=== PATIENT | male | born 1945 | race Caucasian/White ===

== ENCOUNTER 2019-02-21 21:09 | Inpatient (IN) | payer MEDICARE ==
[~2019-02-21] VITALS: Ht 185.4 cm; Wt 97.0 kg
[2019-02-21 21:47] LABS: Hematocrit 21.5 % (41.0-53.0); Hemoglobin 7.1 g/dL (13.5-17.5); Mean Corpuscular Hemoglobin 32.1 pg (28.0-32.0); Mean Corpuscular Volume 97.1 fL (80.0-100.0); Red Blood Cells 2.21 10^6/uL (4.5-5.90); Red Cell Distribution Width 17.8 % (11.8-14.3)
[2019-02-21 21:54] LABS: Platelet Count (auto) 8 10^3/uL (140-450); White Blood Cell 35.3 10^3/uL (4.4-10.8)
[2019-02-21 21:56] LABS: Basophils % (manual) 0 (0.0-2.0); Blast Cells 0; Eosinophils % (manual) 0 (0-7); Myelocytes % 0; Promyelocytes % 0
[2019-02-21 22:04] LABS: INR 1.01 (0.9-1.15); Partial Thromboplastin Time 38.9 sec (23.64-32.05)
[2019-02-21 22:07] LABS: Albumin 2.6 g/dL (3.4-5.0); Anion Gap 11 (5-15); Calcium 7.5 mg/dL (8.5-10.1); Carbon Dioxide 17 mmol/L (21-32); Chloride 106 mmol/L (98-107); GFR African American 28 mL/min; GFR Non-African American 23 mL/min; Glucose 182 mg/dL (74-106); Magnesium 3.3 mg/dL (1.6-2.6); Potassium 4.1 mmol/L (3.5-5.1); Sodium 134 mmol/L (136-145)
[2019-02-21 22:09] LABS: Alanine Aminotransferase 35 U/L (16-61); Alkaline Phosphatase 130 U/L (45-117); Aspartate Aminotransferase 44 U/L (15-37); Bilirubin, Total 1.5 mg/dL (0.2-1.0); Total Protein 5.9 g/dL (6.4-8.2)
[2019-02-21 22:21] LABS: Blood Urea Nitrogen 107 mg/dL (7-18)
[2019-02-21 22:44] LABS: Band Neutrophils % (manual) 7
[2019-02-21 22:45] LABS: Lymphocytes % (manual) 64 (10.0-50.0); Metamyelocytes % 4; Monocytes % (manual) 10 (0-12); Reactive Lymphocytes 5
[2019-02-22] VITALS (9 sets, daily range): BP systolic 101–140; BP diastolic 49–77
[2019-02-22 00:38] LABS: Urine Amorphous Crystal FEW /hpf (None Seen); Urine Bacteria FEW /hpf (None Seen); Urine Blood 1+ /uL (Negative); Urine Hyaline Cast FEW /lpf (0 - 2); Urine Specific Gravity 1.014 (1.001-1.035); Urine WBC 1 /hpf (0 - 3)
[2019-02-22] MEDS ORDERED: TEMAZEPAM 15 MG CAP PO PRN (05:00)
[2019-02-22] MEDS ORDERED: methylPREDNISolone SOD SUCC 125 MG/2 ML VL IV ONE (05:00)
[2019-02-22] MEDS ORDERED: SODIUM CHLORIDE 0.9% 1,000 ML IV ONE (05:15)
[2019-02-22 06:08] LABS: Hematocrit 18.7 % (41.0-53.0); Mean Corpuscular Hemoglobin 33.3 pg (28.0-32.0); Mean Corpuscular Hgb Conc. 34.9 g/dL (32.0-36.0); Mean Corpuscular Volume 95.6 fL (80.0-100.0); Platelet Count (auto) 29 10^3/uL (140-450); Red Blood Cells 1.95 10^6/uL (4.5-5.90); Red Cell Distribution Width 17.8 % (11.8-14.3); White Blood Cell 27.1 10^3/uL (4.4-10.8)
[2019-02-22 06:21] LABS: BUN/Creatinine Ratio 44.7
[2019-02-22] MEDS: DOXYCYCLINE 100MG/250ML 250 ML IV SCH ×2 (06:25→17:35)
[2019-02-22] MEDS: MORPHINE SULF INJ 2 MG/ML SYRINGE 1ML IV PRN ×2 (06:25→20:20)
[2019-02-22] MEDS: ONDANSETRON HCL 4 MG/2 ML VIAL IV PRN ×2 (06:26→20:25)
[2019-02-22 06:37] LABS: Hemoglobin 6.5 g/dL (13.5-17.5)
[2019-02-22 06:39] LABS: Basophils % (manual) 0 (0.0-2.0); Blast Cells 0; Eosinophils % (manual) 0 (0-7); Myelocytes % 0; Promyelocytes % 0; Reactive Lymphocytes 0
[2019-02-22 07:59] LABS: % Iron Saturation 97.9 % (20-55)
[2019-02-22 08:09] LABS: Band Neutrophils % (manual) 6; Lymphocytes % (manual) 79 (10.0-50.0); Metamyelocytes % 2; Monocytes % (manual) 5 (0-12)
[2019-02-22 08:58] LABS: Folate (Folic Acid) 8.51 ng/mL (5.38-24)
--- NOTE | 2019-02-22 09:00 | NUR ---
Telemetry admit from ER DRISSAISHASAMANTHA admitted to Telemetry unit after SBAR received. Patient oriented to BLAIR CARRILLO, RN primary RN, unit, room, bed, and unit policies regarding patient care and visiting hours. Patient now on continuous telemetry monitoring, tele box #80 and telemetry reading on arrival to unit is normal sinus rhythm at 91 bpm. Patient placed on bedside oxygen, weighed by bed scale and encouraged to call if they need something. All questions and concerns addressed, patient verbalized understanding.
[2019-02-22] MEDS: PANTOPRAZOLE 40 MG TAB PO SCH (10:00)
--- NOTE | 2019-02-22 10:45 | NUR ---
Dr. Edwards, Glass Rolling Machine Operator, at bedside. New orders received.
--- NOTE | 2019-02-22 11:00 | NUR ---
Joe catheter insertion Patient assessed and determined to be in need of joe catheter. Order obtained from MD. Patient educated on catheter and reason for insertion. All questions answered. Joe catheter 16 gauge Sinhala inserted with clean sterile technique. Patient tolerated well.
--- NOTE | 2019-02-22 11:00 | NUR ---
Dr. Edwards, Post Anesthesia Nurse, ordered strict I&O's.
--- NOTE | 2019-02-22 11:05 | NUR ---
Blood transfusion started at 1105. Vitals are as followed: 140/66 mmHg 93 Heart Rate 15 Respiratory Rate 100% O2 sat on room air 98.2 oral temp F. No distress noted at time of start, patient lying supine in bed.
--- NOTE | 2019-02-22 12:00 | NUR ---
Drained 2000 mL of urine from joe bag.
--- NOTE | 2019-02-22 14:41 | NUR ---
Blood transfusion finished; patient tolerated well.
[2019-02-22] MEDS: PIPERACILLIN-TAZO 4.5GM 100 ML IV SCH (23:00)
[2019-02-22] MEDS ORDERED: PIPERACILLIN-TAZO 4.5GM 100 ML IV ONE (23:33)
[2019-02-23] VITALS (11 sets, daily range): BP systolic 111–130; BP diastolic 52–79
[2019-02-23] MEDS: ONDANSETRON HCL 4 MG/2 ML VIAL IV PRN (03:33)
[2019-02-23] MEDS: MORPHINE SULF INJ 2 MG/ML SYRINGE 1ML IV PRN ×4 (03:38→22:04)
--- NOTE | 2019-02-23 04:11 | NUR ---
Pt medicated for pain with morphine 2mg IVP after zofran 4gm given to prevent n/v. Pt complaintive whenever linens moved or he is touched. Does not make requests or complaints clear freq. Dozes off easily. RN found towel between pt's legs wrapped with chux. Towel removed. F/C balloon checked as DEPUTY [place] MAR[employer] states F/C has been dripping. 12ml in catheter balloon. Pt dozing at this time.
[2019-02-23] MEDS: DOXYCYCLINE 100MG/250ML 250 ML IV SCH ×2 (04:27→17:33)
[2019-02-23] MEDS: PIPERACILLIN-TAZO 4.5GM 100 ML IV SCH ×3 (06:00→22:04)
[2019-02-23 06:41] LABS: Hematocrit 19.9 % (41.0-53.0); Mean Corpuscular Hemoglobin 33.2 pg (28.0-32.0); Mean Corpuscular Hgb Conc. 35.3 g/dL (32.0-36.0); Mean Corpuscular Volume 94.2 fL (80.0-100.0); Red Blood Cells 2.11 10^6/uL (4.5-5.90); Red Cell Distribution Width 17.3 % (11.8-14.3); White Blood Cell 6.3 10^3/uL (4.4-10.8)
[2019-02-23 06:52] LABS: Albumin 2.4 g/dL (3.4-5.0); Potassium 4.7 mmol/L (3.5-5.1)
[2019-02-23 06:56] LABS: Bilirubin, Total 1.5 mg/dL (0.2-1.0); Total Protein 5.8 g/dL (6.4-8.2)
[2019-02-23 07:00] LABS: Platelet Count (auto) 6 10^3/uL (140-450)
[2019-02-23 07:05] LABS: Basophils % (manual) 0 (0.0-2.0); Blast Cells 0; Eosinophils % (manual) 0 (0-7); Monocytes % (manual) 0 (0-12); Myelocytes % 0; Promyelocytes % 0; Reactive Lymphocytes 0
--- NOTE | 2019-02-23 08:00 | NUR ---
OPENING SHIFT NOTE: PATIENT SITTING UP IN BED EATING BREAKFAST. UPDATED ON PLAN OF CARE. PATIENT VERBALIZED UNDERSTANDING. BED IN LOWEST LOCKED POSITION, CALL LIGHT WITHIN REACH. WILL CONTINUE TO MONITOR.
[2019-02-23 08:36] LABS: Band Neutrophils % (manual) 20; Lymphocytes % (manual) 56 (10.0-50.0); Metamyelocytes % 3
[2019-02-23 09:34] LABS: Hepatitis A Ab IgM Negative; Hepatitis B Core IgM Negative; Hepatitis B Surface Antigen Negative (Negative); Hepatitis C Antibody Negative (Negative)
--- NOTE | 2019-02-23 11:02 | NUR ---
MD RAI ARANA. NEW ORDERS GIVEN.
[2019-02-23] MEDS: PANTOPRAZOLE 40 MG TAB PO SCH (11:16)
--- NOTE | 2019-02-23 11:36 | NUR ---
CALL FROM BLOOD BANK: PLATELETS TO COME FROM OUTSIDE VENDOR. APPROXIMATELY 2-4 HOUR ARRIVAL TIME.
[2019-02-23] MEDS: ACETAMINOPHEN 500 MG TAB PO PRN (13:35)
--- NOTE | 2019-02-23 13:39 | NUR ---
IV NEW IV IN LEFT HAND 20G SALINE LOCKED.
--- NOTE | 2019-02-23 14:57 | NUR ---
Discharge planning per consult, patient has orders for home health for safety eval, PT, and medication management and a FWW. Referral faxed to [facility] for the FWW. Placed a follow up call, spoke with Amber and was advised that patient has medicare part A only and does not qualify for the FWW. Patient was presented with a choice letter,and did not have a preference. Referral was faxed to [facility], placed a follow up call, spoke with Teetee and was advised that they will accept patient onto services and start of care will begin within 24-48 hours upon discharge. Nurse Becerril was advised. Addendum: 02/23/19 at 1516 by PHIL MUÑIZ Amended: Links added.
[2019-02-23] MEDS: SODIUM CHLORIDE 0.9% 1,000 ML IV SCH (16:51)
--- NOTE | 2019-02-23 17:40 | NUR ---
DR. Alejandra SMITH AT BEDSIDE.
[2019-02-23] MEDS ORDERED: DexAMETHasone INJECTION 10 MG in D5W 5% 50 ML IV SCH (18:00)
[2019-02-23] MEDS: DexAMETHasone INJECTION 10 MG in D5W 5% 50 ML IV SCH ×2 (18:31→21:06)
--- NOTE | 2019-02-23 18:41 | NUR ---
CLOSING SHIFT NOTE: PATIENT RESTING IN BED. BREATHING EVEN, UNLABORED. COMPLAINTS OF ABDOMINAL PAIN, INFORMED PATIENT OF TIME FRAME FOR NEXT MORPHINE DOSE. PATIENT VERBALIZED UNDERSTANDING. CALL LIGHT WITHIN REACH. WILL ENDORSE CARE TO NOC RN.
--- NOTE | 2019-02-23 19:14 | NUR ---
CARE ENDORSED TO MARY SILVERIO RN.
--- NOTE | 2019-02-23 19:30 | NUR ---
Opening Shift Note Assumed care of patient, awake and alert. No S/S of distress/SOB or pain. Bed locked in lowest position, side rails upx2, call light within reach, bed alarm on. Instructed on POC and to call for assist PRN, will continue to monitor for changes Q1hr and PRN.
[2019-02-23] MEDS: SODIUM BICARBONATE 650 MG TAB PO SCH (21:06)
[2019-02-24] VITALS (11 sets, daily range): BP systolic 105–132; BP diastolic 64–82
[2019-02-24] MEDS: MORPHINE SULF INJ 2 MG/ML SYRINGE 1ML IV PRN ×2 (04:24→16:27)
[2019-02-24] MEDS: DOXYCYCLINE 100MG/250ML 250 ML IV SCH ×2 (04:57→17:42)
[2019-02-24] MEDS: DexAMETHasone INJECTION 10 MG in D5W 5% 50 ML IV SCH ×4 (06:11→21:40)
[2019-02-24] MEDS: SODIUM BICARBONATE 650 MG TAB PO SCH ×3 (06:11→21:41)
[2019-02-24] MEDS: PIPERACILLIN-TAZO 4.5GM 100 ML IV SCH ×3 (07:01→22:25)
[2019-02-24 07:13] LABS: Hematocrit 21.5 % (41.0-53.0); Hemoglobin 7.5 g/dL (13.5-17.5); Red Cell Distribution Width 16.8 % (11.8-14.3)
[2019-02-24 07:15] LABS: Mean Corpuscular Hgb Conc. 34.9 g/dL (32.0-36.0); Mean Corpuscular Volume 94.8 fL (80.0-100.0); Red Blood Cells 2.27 10^6/uL (4.5-5.90); White Blood Cell 3.3 10^3/uL (4.4-10.8)
[2019-02-24 07:29] LABS: BUN/Creatinine Ratio 36.3; Calcium 7.8 mg/dL (8.5-10.1); Potassium 5.1 mmol/L (3.5-5.1)
[2019-02-24 07:49] LABS: Basophils % (manual) 0 (0.0-2.0); Blast Cells 0; Eosinophils % (manual) 0 (0-7); Metamyelocytes % 0; Myelocytes % 0; Platelet Count (auto) 11 10^3/uL (140-450); Promyelocytes % 0; Reactive Lymphocytes 0
--- NOTE | 2019-02-24 08:06 | NUR ---
CRITICAL LAB PAGE TO DR. ATWOOD -PLATELETS 11
--- NOTE | 2019-02-24 08:07 | NUR ---
OPENING SHIFT NOTE: PATIENT AWAKE, RESTING IN BED EATING BREAKFAST. NO COMPLAINTS OF PAIN, BED IN LOWEST LOCKED POSITION, BED ALARM ON AND IN PLACE. CALL LIGHT WITHIN REACH, RESPIRATIONS EVEN AND UNLABORED. WILL CONTINUE TO MONITOR.
[2019-02-24 08:22] LABS: Band Neutrophils % (manual) 4; Lymphocytes % (manual) 69 (10.0-50.0); Monocytes % (manual) 6 (0-12)
[2019-02-24] MEDS: SODIUM CHLORIDE 0.9% 1,000 ML IV SCH (09:46)
[2019-02-24] MEDS: PANTOPRAZOLE 40 MG TAB PO SCH (09:46)
--- NOTE | 2019-02-24 13:12 | NUR ---
MD Donavan MATHEWS MADE AWARE OF PATIENTS SUICIDE IDEATION. ORDERS GIVEN. TELE PSYCH CONSULT PLACED.
--- NOTE | 2019-02-24 13:18 | NUR ---
PATIENT'S THOUGHTS/EMOTIONAL CONCERN: DURING PATIENT ROUNDING, THIS RN ACTIVELY LISTENED TO PATIENTS OPINIONS AND THOUGHTS ABOUT LIFE. PATIENT STATED, "MY DAUGHTER RUINED MY PLAN BY CALLING 911." "I TOLD HER JUST LEAVE ME ALONE, LET THE SOLAR DESIGNER FIND ME." PATIENT DENIES ANY HISTORY OF DEPRESSION, BUT CONFIRMED HAVING A SUICIDE PLAN IN THE PAST. THIS RN TO INFORM PRIMARY MD.
[2019-02-24 13:46] LABS: Hepatitis B Surface Antibody Negative
--- NOTE | 2019-02-24 13:55 | NUR ---
MESSAGE TO DR. GEE: THIS RN LEFT MESSAGE FOR MD. GEE REGARDING NEED FOR CLARIFICATION OF COMMUNICATION ORDER FOR 2 UNITS PRBC'S. CONFLICTING NOTES FROM Alejandra SMITH.
[2019-02-24 14:37] LABS: Hepatitis B Surface Antigen Negative (Negative)
--- NOTE | 2019-02-24 14:54 | NUR ---
assessment Patient is a 73 year old male who is alert and oriented. Patients cognitive abilities are intact. Prior to admission patient lived home alone and needed assistance. Patient informed me he could take care of himself, but clearly he needs assistance. Per patient he has a cane for home use. Patient will need a PT evaluation. I informed patient he may benefit from home health PT or SNF depending on eval. Patient agreed. Patient has had multiple falls at home. Patient did not want to disclose his income. Patient does not want assisted living at this time. I will have Africa TONG bring patient resources for board and care and room and boards. I informed patient he has a right to speak to a social service worker regarding all care. I informed patient he has a right to participate in any and all discharge planning. Patient does not have a POA and advanced directive. I have offered patient information on POA and advanced directives. I informed the patient the advantages and benefits of having an Advanced Directive. Patient verbalized understanding. Addendum: 02/24/19 at 1512 by Sherie KWAN Amended: Links added.
--- NOTE | 2019-02-24 15:02 | NUR ---
PLATELETS ORDERED: ARRIVAL TIME APPROX 2-4 HOURS FROM [facility].
--- NOTE | 2019-02-24 15:10 | NUR ---
TELE PSYCH MONITOR AT BEDSIDE, NO CONNECTION YET.
--- NOTE | 2019-02-24 15:51 | NUR ---
MD ISBELL ROUNDING: NO ORDERS GIVEN AT THIS TIME, RECOMMENDS INFLUENZA SWAB AND BONE MARROW ASPIRATION.
--- NOTE | 2019-02-24 16:30 | NUR ---
RAPID INFLUENZA SENT TO LAB.
--- NOTE | 2019-02-24 17:01 | NUR ---
ABDOMINAL PAIN: PATIENT HAS BEEN HAVING LOWER QUADRANT ABDOMINAL PAIN X 2 DAYS. BREAKTHROUGH PAIN 8/10 STABBING, AND PATIENT GROANS, AND GUARDS ABDOMEN. MORPHINE ORDERED HAS BEEN BRINGING PAIN DOWN TO 4-5/10. PATIENT HAD 5 BOWEL MOVEMENTS TODAY. THIS RN INFORMED MD Donavan MATHEWS DURING MORNING ROUNDS OF RECENT ABDOMINAL PAIN. WILL CONTINUE TO MONITOR.
--- NOTE | 2019-02-24 18:53 | NUR ---
CLOSING SHIFT NOTE: PATIENT RESTING IN BED, EVEN AND UNLABORED RESPIRATIONS NOTED, SAHU HUNG BELOW BLADDER. CALL LIGHT WITHIN REACH FALL PRECAUTIONS IN PLACE. WILL ENDORSE CARE TO NOC RN.
--- NOTE | 2019-02-24 19:22 | NUR ---
NOC CARLOS IRBY NOT IN UNIT. NOTIFIED DIRECTOR ELECTRICAL ENGINEERING.
--- NOTE | 2019-02-24 19:35 | NUR ---
CARE ENDORSED TO SCOTT GONZALEZ.
--- NOTE | 2019-02-24 21:25 | NUR ---
1st unit of platelets started transfusing.
--- NOTE | 2019-02-24 23:30 | NUR ---
platelets finished transfusing.
--- NOTE | 2019-02-24 23:50 | NUR ---
Received patient awake and alert. No acute distress noted. Respiration even and unlabored. Bed in low position and call light in reach. Sitter at bedside.
--- NOTE | 2019-02-24 23:50 | NUR ---
PATIENT TRANSFERRED TO SITTER ROOM (247B). ALL BELONGINGS, CHART AND MEDICATIONS WERE TRANSPORTED TO PATIENT'S NEW UNIT. CARLOS SILVA RECEIVED REPORT.
--- NOTE | 2019-02-25 00:20 | NUR ---
Requested Platlets from Lab. Senior Manufacturing Supervisor states Platlets have not yet been received and will contact unit when platlets are available.
[2019-02-25] MEDS: SODIUM CHLORIDE 0.9% 1,000 ML IV SCH ×2 (01:50→18:30)
[2019-02-25 05:03] VITALS: BP 128/63
[2019-02-25] MEDS: MORPHINE SULF INJ 2 MG/ML SYRINGE 1ML IV PRN ×2 (05:22→07:52)
[2019-02-25] MEDS: DOXYCYCLINE 100MG/250ML 250 ML IV SCH ×2 (05:23→17:15)
[2019-02-25] MEDS: SODIUM BICARBONATE 650 MG TAB PO SCH ×3 (06:00→21:56)
[2019-02-25] MEDS: PIPERACILLIN-TAZO 4.5GM 100 ML IV SCH ×3 (06:00→21:55)
[2019-02-25] MEDS: DexAMETHasone INJECTION 10 MG in D5W 5% 50 ML IV SCH ×3 (06:00→18:00)
--- NOTE | 2019-02-25 06:30 | NUR ---
Patient noted with increased agitation and confusion. He yanked out two IVs. He pulled off his telemetry box and electrodes. I offered to reinsert IV and explained to patient that his IV medications are needed. He replied and stated "I don't want any of this stuff". He was informed that the Telemetry box is needed to monitor his heart. He states, "No stuff". Patient also states he was not aware that he would be receiving all of this unnecessary treatment during his hospital stay. MIGDALIA Mcmahon, notified of patient's status. New order received for Ativan 0.5 mg every eight hours orally. Patient declined any further treatment.
[2019-02-25] MEDS ORDERED: LORazepam 0.5 MG TAB PO PRN (06:45)
--- NOTE | 2019-02-25 07:30 | NUR ---
Report received. Patient lying on his right side, appears to be asleep. Respirations even and unlabored. No S/S distress. Sitter at bedside. Will continue to monitor.
--- NOTE | 2019-02-25 07:30 | NUR ---
Report given to day shift RN.
--- NOTE | 2019-02-25 08:17 | NUR ---
Patient awake, some anxiety noted. Patient is not able to state where he is. Patient is refusing breakfast. Patient is refusing IV restart at this time. Sitter at bedside. Will continue to monitor.
--- NOTE | 2019-02-25 08:20 | NUR ---
Patient is refusing to have telemetry box replaced. Will continue to monitor.
--- NOTE | 2019-02-25 09:11 | NUR ---
Pt refused treatment at this time, notified RN, will attempt again later
[2019-02-25] MEDS: FOLIC ACID 1 MG TAB PO SCH (10:00)
[2019-02-25] MEDS: PANTOPRAZOLE 40 MG TAB PO SCH (10:00)
[2019-02-25] MEDS: SERTRALINE HCL 50 MG TAB PO SCH (10:00)
--- NOTE | 2019-02-25 10:00 | NUR ---
Dr. Donavan Ayala in to see patient as hospitalist. Dr. Ayala was informed the patient is refusing IV insertion and meds. Dr. Ayala also informed the patient is refusing to wear telemetry box. supervisor core drilling, Jasmina, also informed of patient's refusal for treatment.
--- NOTE | 2019-02-25 11:20 | NUR ---
Nutrition Assessment Notes please see attached link for complete assessment Est. Needs BW [id number] kcal (23-25 kcal/kgBW), 77-97 gms pro (0.8-1.0 gms/kgBW r/t elev RFT). Will continue to monitor pertinent labs and reassess nutrient need prn Addendum: 02/25/19 at [address] Amended: Links added.
--- NOTE | 2019-02-25 12:55 | NUR ---
Patient showing some restlessness. Will not answer questions re how he is doing or if he is in pain. Will continue to monitor. Sitter at bedside.
--- NOTE | 2019-02-25 13:56 | NUR ---
Received order to discontinue telemetry.
[2019-02-25] MEDS: ACETAMINOPHEN 500 MG TAB PO PRN (14:14)
--- NOTE | 2019-02-25 14:21 | NUR ---
Patient states "never mind" when asked how he is doing. Will continue to monitor.
--- NOTE | 2019-02-25 16:38 | NUR ---
Spoke with patient re IV insertion and taking the medications ordered. Patient refusing at this time. Will continue to monitor.
[2019-02-25 17:00] VITALS: BP 126/64
--- NOTE | 2019-02-25 19:20 | NUR ---
Opening Shift Note Assumed care of patient, awake and alert. Sitter at bedside, No S/S of distress/SOB or pain. Patient is refusing IV insertion and medications. Information given on the importance of having an IV and taking medication, patient states "if its going to prolong anything, I don't want it". Bed is locked in lowest position with side rails up x2 for safety, call light is within reach and patient is encouraged to call if needs anything. Will continue to monitor for changes Q1hr and PRN.
[2019-02-25 22:00] VITALS: BP 113/55
[2019-02-26 05:00] VITALS: BP 130/75
[2019-02-26] MEDS: ACETAMINOPHEN 500 MG TAB PO PRN (05:48)
[2019-02-26] MEDS: SODIUM BICARBONATE 650 MG TAB PO SCH ×3 (05:48→21:50)
[2019-02-26] MEDS: PIPERACILLIN-TAZO 4.5GM 100 ML IV SCH ×3 (05:48→21:52)
--- NOTE | 2019-02-26 07:30 | NUR ---
Report received. Sitter at bedside. Patient appears to be asleep. No S/S distress. Call light in reach. Will continue to monitor.
[2019-02-26 09:00] VITALS: BP 144/47
[2019-02-26] MEDS: SODIUM CHLORIDE 0.9% 1,000 ML IV SCH (09:00)
--- NOTE | 2019-02-26 09:55 | NUR ---
Patient agreed to IV start. Iv started left forearm with #20 fr IV catheter. IV secured with tape. Patient education given. Dr. Ayala informed the patient agreed to IV start.
--- NOTE | 2019-02-26 09:58 | NUR ---
Dr. Ayala in to see patient as hospitalist.
--- NOTE | 2019-02-26 10:00 | NUR ---
Dr. Ayala informed the patient is agreeing to IV and PO medications.
--- NOTE | 2019-02-26 10:14 | NUR ---
Pharmacy informed the patient now has IV access. Decadron IVBP to be made and sent to the floor.
[2019-02-26] MEDS: PANTOPRAZOLE 40 MG TAB PO SCH (10:29)
[2019-02-26] MEDS: SERTRALINE HCL 50 MG TAB PO SCH (10:29)
[2019-02-26] MEDS: FOLIC ACID 1 MG TAB PO SCH (10:29)
[2019-02-26] MEDS: DexAMETHasone INJECTION 10 MG in D5W 5% 50 ML IV SCH ×3 (11:29→21:50)
--- NOTE | 2019-02-26 12:48 | NUR ---
Patient sitting up in bed eating lunch. Will continue to monitor.
[2019-02-26 13:00] VITALS: BP 141/69
--- NOTE | 2019-02-26 13:55 | NUR ---
14:00 Jannetten not available. Pharmacy informed, med to be sent up to floor.
[2019-02-26] MEDS: DOXYCYCLINE 100MG/250ML 250 ML IV SCH (16:31)
[2019-02-26 17:00] VITALS: BP 119/59
--- NOTE | 2019-02-26 20:15 | NUR ---
RECEIVE IN BED WITH SITTER IN ROOM ASKING IF I BROUGHT HIM SOME ERIBERTOE IS WATCHING TV
[2019-02-26 22:00] VITALS: BP 136/61
[2019-02-27] MEDS: SODIUM CHLORIDE 0.9% 1,000 ML IV SCH (03:46)
[2019-02-27] MEDS: DOXYCYCLINE 100MG/250ML 250 ML IV SCH (04:59)
[2019-02-27 05:00] VITALS: BP 129/55
[2019-02-27] MEDS: SODIUM BICARBONATE 650 MG TAB PO SCH (05:51)
[2019-02-27] MEDS: DexAMETHasone INJECTION 10 MG in D5W 5% 50 ML IV SCH ×2 (05:52→18:43)
[2019-02-27] MEDS: PIPERACILLIN-TAZO 4.5GM 100 ML IV SCH (05:53)
[2019-02-27 07:14] LABS: % Iron Saturation 50.3 % (20-55)
[2019-02-27 09:00] VITALS: BP 115/57
[2019-02-27] MEDS: SERTRALINE HCL 50 MG TAB PO SCH (09:53)
[2019-02-27] MEDS: FOLIC ACID 1 MG TAB PO SCH (09:53)
[2019-02-27] MEDS: PANTOPRAZOLE 40 MG TAB PO SCH (09:53)
[2019-02-27 11:14] LABS: Hemoglobin 7.6 g/dL (13.5-17.5); Platelet Count (auto) 24 10^3/uL (140-450)
[2019-02-27 11:15] LABS: Hematocrit 22.3 % (41.0-53.0); Mean Corpuscular Hemoglobin 32.5 pg (28.0-32.0); Mean Corpuscular Volume 95.6 fL (80.0-100.0); Red Blood Cells 2.34 10^6/uL (4.5-5.90); Red Cell Distribution Width 16.3 % (11.8-14.3)
[2019-02-27 11:20] LABS: Band Neutrophils % (manual) 0; Basophils % (manual) 0 (0.0-2.0); Blast Cells 0; Eosinophils % (manual) 0 (0-7); Metamyelocytes % 0; Myelocytes % 0; Promyelocytes % 0; Reactive Lymphocytes 0
[2019-02-27 11:38] LABS: Albumin 2.6 g/dL (3.4-5.0); BUN/Creatinine Ratio 22.2; Bilirubin, Total 0.5 mg/dL (0.2-1.0); Calcium 8.4 mg/dL (8.5-10.1); Potassium 4.5 mmol/L (3.5-5.1); Total Protein 5.5 g/dL (6.4-8.2)
[2019-02-27 11:54] LABS: Lymphocytes % (manual) 65 (10.0-50.0); Monocytes % (manual) 17 (0-12)
--- NOTE | 2019-02-27 12:46 | NUR ---
called pharmacy for missing med Dexamethasone IVPB. per pharmacist medication is discontinued today @ 1715. Explained to her then patient still need 1200 dose, but per pharmacist she can not make it because its discontinued then changed her sentence to " I will print a label and mix it for you later because nobody here, I'm very busy."
[2019-02-27 13:00] VITALS: BP 130/56
[2019-02-27 17:00] VITALS: BP 127/68
--- NOTE | 2019-02-27 19:20 | NUR ---
Opening Shift Note Assumed care of patient, awake and alert. No S/S of distress/SOB or pain. Instructed on POC and to call for assist PRN, will continue to monitor for changes Q1hr and PRN.
[2019-02-27] MEDS: DOXYCYCLINE 100 MG TAB/CAP PO SCH (21:42)
[2019-02-27 22:00] VITALS: BP 117/50
[2019-02-28 05:00] VITALS: BP 123/61
[2019-02-28 09:00] VITALS: BP 117/59
[2019-02-28] MEDS: SERTRALINE HCL 50 MG TAB PO SCH (09:11)
[2019-02-28] MEDS: FOLIC ACID 1 MG TAB PO SCH (09:11)
[2019-02-28] MEDS: DOXYCYCLINE 100 MG TAB/CAP PO SCH ×2 (09:11→21:52)
[2019-02-28] MEDS: PANTOPRAZOLE 40 MG TAB PO SCH (09:11)
[2019-02-28 11:05] LABS: Hemoglobin 7.2 g/dL (13.5-17.5); Platelet Count (auto) 25 10^3/uL (140-450)
[2019-02-28 11:07] LABS: Hematocrit 21.1 % (41.0-53.0); Mean Corpuscular Hemoglobin 32.6 pg (28.0-32.0); Mean Corpuscular Hgb Conc. 33.9 g/dL (32.0-36.0); Mean Corpuscular Volume 96.2 fL (80.0-100.0); Red Cell Distribution Width 15.8 % (11.8-14.3); White Blood Cell 8.2 10^3/uL (4.4-10.8)
[2019-02-28 11:10] LABS: Band Neutrophils % (manual) 0; Basophils % (manual) 0 (0.0-2.0); Blast Cells 0; Eosinophils % (manual) 0 (0-7); Metamyelocytes % 0; Myelocytes % 0; Promyelocytes % 0; Reactive Lymphocytes 0
[2019-02-28 11:22] LABS: Lymphocytes % (manual) 71 (10.0-50.0); Monocytes % (manual) 18 (0-12)
[2019-02-28 13:00] VITALS: BP 119/51
--- NOTE | 2019-02-28 14:57 | NUR ---
Nutrition Follow-up Notes Wt.: 96.7 kg as of yesterday. Pt's asleep, no immediate family member at bedside except for sitter during rounds this morning. Pt's no signs of distress noted earlier, currently on Regular diet with adequate PO intake aeb 75% ave. consumed meals (x6) in last 2.5 days. Noted pt's for active Tele Psych consult. Est. Needs BW [id number] kcal (23-25 kcal/kgBW), 77-97 gms pro (0.8-1.0 gms/kgBW r/t elev RFT). Will continue to monitor pertinent labs and reassess nutrient need prn Labs: No new labs today 02/27/19:Gluc 215 H, BUN 24 H, Ca 8.4 L, Ferritin >1650.0 H, TIBC 183 L, Tpro 5.5 L, Alb 2.6 L, Hba1c 6.3 wnl Skin: Riki scale 18, mod risk, pt's medial head bruises per deputy building guard. GI: Pt had 1 BM yesterday per deputy building guard. PES: Altered nutrition related lab values r/t current/chronic medical condition aeb elev RFT hyperglcyemia, mod hypoalb hypocalcmeia Will continue to monitor PO intake, skin status, pertinent labs and weight trend. F/u in 3 to 5 days. Rec.: 1.) Consider CCHO High: 75 gms/meal diet blood gluc remains consistently eleb. 2.) Continue close supervision during meals. 3.) If Albumin continues trending down, consider Prostat 1 pkt BID. 4.) Consider daily MVI with minerals and Asc acid 500 mgs BID prn. 5.) Refer pt to CDE/RD for further nutrition education and weight monitoring upon discharge. 6.) Continue current plan of care.
--- NOTE | 2019-02-28 15:33 | NUR ---
AMBULATED AT LEAST 60 FEET WITH PT WITH WALKER. BACK TO CHAIR AND STARTED COMPLAINING UPPER ABDOMINAL PAIN. PER PATIENT HAS NOT HAVE A GOOD DECENT BOWEL MOVEMENT. PATIENT WANTS TO SIT ON TOILET, PT CALLED FOR WALKER.
[2019-02-28 16:11] VITALS: BP 109/51
[2019-02-28] MEDS: predniSONE 20 MG TAB PO SCH (16:14)
[2019-03-01 06:14] LABS: Hemoglobin 7.1 g/dL (13.5-17.5); Mean Corpuscular Hemoglobin 33.1 pg (28.0-32.0); Red Blood Cells 2.15 10^6/uL (4.5-5.90); White Blood Cell 6.1 10^3/uL (4.4-10.8)
[2019-03-01 06:20] LABS: Hematocrit 20.6 % (41.0-53.0); Mean Corpuscular Hgb Conc. 34.6 g/dL (32.0-36.0); Mean Corpuscular Volume 95.8 fL (80.0-100.0); Platelet Count (auto) 27 10^3/uL (140-450); Red Cell Distribution Width 15.9 % (11.8-14.3)
[2019-03-01 06:31] LABS: Band Neutrophils % (manual) 0; Basophils % (manual) 0 (0.0-2.0); Blast Cells 0; Eosinophils % (manual) 0 (0-7); Metamyelocytes % 0; Myelocytes % 0; Promyelocytes % 0; Reactive Lymphocytes 0
[2019-03-01 07:09] LABS: Lymphocytes % (manual) 66 (10.0-50.0); Monocytes % (manual) 22 (0-12)
--- NOTE | 2019-03-01 07:30 | NUR ---
asleep lying on his right side, SCD on. sitter at bedside
[2019-03-01 09:00] VITALS: BP 113/60
[2019-03-01] MEDS ORDERED: LIDOCAINE 1% (LOCAL ANESTH.) PF 5ml SDV ONE ×2 (09:10→09:27)
[2019-03-01] MEDS: PANTOPRAZOLE 40 MG TAB PO SCH (09:52)
[2019-03-01] MEDS: SERTRALINE HCL 50 MG TAB PO SCH (09:52)
[2019-03-01] MEDS: DOXYCYCLINE 100 MG TAB/CAP PO SCH (09:52)
[2019-03-01] MEDS: FOLIC ACID 1 MG TAB PO SCH (09:52)
--- NOTE | 2019-03-01 09:52 | NUR ---
successful bone marrow aspiration completed by Dr Bower, pt tolerated well. Nabeel contacted to drop off specimen to pathology, sitter made aware specimen will be picked up by rita Lees.
[2019-03-01] MEDS: predniSONE 20 MG TAB PO SCH (10:48)
--- NOTE | 2019-03-01 10:50 | NUR ---
BM ASP SITE DRESSING REMAINS CLEAN,DRY AND INTACT
[2019-03-01 13:00] VITALS: BP 122/52
[2019-03-01] MEDS: FERROUS SULFATE 325 MG TAB PO SCH ×2 (15:22→22:50)
[2019-03-01 17:00] VITALS: BP 104/49
--- NOTE | 2019-03-01 19:30 | NUR ---
Opening Shift Note Assumed care of patient. Patient is awake and alert with sitter at bedside. No S/S of distress/SOB or pain. Instructed on POC and to call for assist PRN, will continue to monitor for changes. Bed locked in lowest position and bed rails up x2. Call light within reach.
[2019-03-01 22:00] VITALS: BP 99/47
[2019-03-01] MEDS: DOCUSATE SOD 100 MG CAP PO SCH (22:51)
[2019-03-02] MEDS: ACETAMINOPHEN 500 MG TAB PO PRN (05:10)
[2019-03-02 05:14] VITALS: BP 105/57
[2019-03-02] MEDS: FERROUS SULFATE 325 MG TAB PO SCH ×3 (06:16→22:07)
--- NOTE | 2019-03-02 07:30 | NUR ---
Opening Shift Note Assumed care of patient, asleep, arouses to name and alert. No S/S of distress/SOB. Pt denies having any pain at this time. Bed in lowest and locked position with side rails up x2 and call light in reach. Instructed on POC and to call for assist PRN, will continue to monitor for changes Q1hr and PRN.
[2019-03-02 08:30] LABS: Mean Corpuscular Hemoglobin 33.3 pg (28.0-32.0); Mean Corpuscular Hgb Conc. 34.6 g/dL (32.0-36.0)
[2019-03-02 08:32] LABS: Hematocrit 22.6 % (41.0-53.0); Hemoglobin 7.8 g/dL (13.5-17.5); Mean Corpuscular Volume 96.4 fL (80.0-100.0); Platelet Count (auto) 41 10^3/uL (140-450); Red Blood Cells 2.34 10^6/uL (4.5-5.90); White Blood Cell 7.5 10^3/uL (4.4-10.8)
[2019-03-02 08:40] LABS: Basophils % (manual) 0 (0.0-2.0); Blast Cells 0; Eosinophils % (manual) 0 (0-7); Myelocytes % 0; Promyelocytes % 0; Reactive Lymphocytes 0
[2019-03-02 09:00] VITALS: BP 102/70
[2019-03-02 09:13] LABS: Band Neutrophils % (manual) 1; Lymphocytes % (manual) 78 (10.0-50.0); Metamyelocytes % 4; Monocytes % (manual) 10 (0-12)
[2019-03-02] MEDS: PANTOPRAZOLE 40 MG TAB PO SCH (10:02)
[2019-03-02] MEDS: FOLIC ACID 1 MG TAB PO SCH (10:02)
[2019-03-02] MEDS: DOCUSATE SOD 100 MG CAP PO SCH ×2 (10:03→22:07)
[2019-03-02] MEDS: predniSONE 20 MG TAB PO SCH ×2 (10:03→17:54)
[2019-03-02] MEDS: SERTRALINE HCL 50 MG TAB PO SCH (10:03)
--- NOTE | 2019-03-02 10:50 | NUR ---
CALLED AND SPOKE TO DR. ATWOOD. PER , THE PTS CT CAN BE CHANGED TO A KUB. Addendum: 03/02/19 at 1104 by BREA OLIVA RN RN PATIENTS XR TO BE CHANGED TO A KUB.
--- NOTE | 2019-03-02 11:11 | NUR ---
SPOKE TO DR. ATWOOD. ORDERS RECEIVED TO CALL MD FOR RESULTS OF KUB XR.
[2019-03-02] MEDS ORDERED: FER325T PO (11:22)
[2019-03-02] MEDS ORDERED: PANT40T PO (11:22)
[2019-03-02] MEDS ORDERED: SERT50TA PO (11:22)
--- NOTE | 2019-03-02 11:45 | NUR ---
REPORT GIVEN TO CARLOS ENRIQUE. IVA AWARE OF MD ORDERS.
[2019-03-02 13:00] VITALS: BP 110/71
[2019-03-02 17:50] VITALS: BP 110/60
--- NOTE | 2019-03-02 19:30 | NUR ---
Opening Shift Note Assumed care of patient. Patient awake and alert with sitter at bedside. No S/S of distress/SOB or pain. Instructed on POC and to call for assist PRN, will continue to monitor for changes. Bed locked in lowest position and bed rails up x2. Call light within reach.
[2019-03-02 21:41] VITALS: BP 114/59
[2019-03-02] MEDS: LACTULOSE 20Gm/30ML SOLN PO SCH (22:07)
[2019-03-03 05:41] VITALS: BP 107/59
[2019-03-03] MEDS: FERROUS SULFATE 325 MG TAB PO SCH ×2 (06:15→14:02)
[2019-03-03 09:00] VITALS: BP 105/49
[2019-03-03] MEDS: PANTOPRAZOLE 40 MG TAB PO SCH (10:25)
[2019-03-03] MEDS: DOCUSATE SOD 100 MG CAP PO SCH (10:25)
[2019-03-03] MEDS: LACTULOSE 20Gm/30ML SOLN PO SCH (10:25)
[2019-03-03] MEDS: SERTRALINE HCL 50 MG TAB PO SCH (10:26)
[2019-03-03] MEDS: FOLIC ACID 1 MG TAB PO SCH (10:26)
[2019-03-03] MEDS: predniSONE 20 MG TAB PO SCH (10:26)
--- NOTE | 2019-03-03 10:37 | NUR ---
DR. ZUÑIGA IN TO SEE AND EVALUATE PT. PER MD: SPEEDER HAND ORDER PLACEMENT FOR HOSPICE
--- NOTE | 2019-03-03 10:49 | NUR ---
Nutrition Follow-up Notes Wt.: 97.0 kg Pt's asleep, no immediate family member at bedside except for sitter during rounds this morning. Pt's no signs of distress noted earlier, currently on Regular diet mech soft with adequate PO intake aeb 75% x 2 days per RN doc Est. Needs BW [id number] kcal (23-25 kcal/kgBW), 77-97 gms pro (0.8-1.0 gms/kgBW r/t elev RFT). Will continue to monitor pertinent labs and reassess nutrient need prn Labs: CA 8.4 L, ALB 2.6 L, BUN 24 H, GLU 215 H Skin: Riki scale 17, mod risk, pt's medial head bruises per radio intelligence operator. GI: Pt had 1 BM 02/28 per radio intelligence operator. PES: Altered nutrition related lab values r/t current/chronic medical condition aeb elev RFT hyperglcyemia, mod hypoalb hypocalcmeia Will continue to monitor PO intake, skin status, pertinent labs and weight trend. F/u in 3 to 5 days. Rec.: 1.) Consider CCHO High: 75 gms/meal diet blood gluc remains consistently eleb. 2.) Continue close supervision during meals. 3.) If Albumin continues trending down, consider Prostat 1 pkt BID. 4.) Consider daily MVI with minerals and Asc acid 500 mgs BID prn. 5.) Refer pt to CDE/RD for further nutrition education and weight monitoring upon discharge. 6.) Continue current plan of care.
[2019-03-03 13:00] VITALS: BP 113/56
--- NOTE | 2019-03-03 14:38 | NUR ---
Discharge planning per consult, patient has orders to dc to SNF for rehabilitation. Patient was presented with a choice, he had no preference. Referral sent to [facility]-[phone]. Placed a follow up call, spoke with Sharon and was advised that they will accept the patient to room [address] Henderson. [phone] [facility] [employer] and the pick up and delivery driver time is at 6:45pm. Nurse Stein was advised of dc plan. Addendum: 03/03/19 at 1442 by PHIL MUÑIZ Amended: Links added.
[2019-03-03 17:00] VITALS: BP 112/51
--- NOTE | 2019-03-03 18:50 | NUR ---
REPORT GIVEN TO ARSH GONZALEZ AT [facility]. ALL QUESTIONS AND CONCERNS ADDRESSED. PT INFORMED OF TRANSFER, PT IN AGREEMENT. DISCHARGE INSTRUCTIONS GIVEN TO PATIENT, TRANSFER PACKET GIVEN TO TRANSPORT TEAM ROMELIA ESTRADA. IV CATHETER DC'D, CATHETER INTACT, NO PHLEBITIS, SAHU CATHETER DC'D ON DISCHARGE, PT VOIDED PRIOR TO DISCHARGE 500ML OF YELLOW URINE. PT ALERT, AWAKE, ORIENTEDx4, DENIES ANY PAIN AT MOMENT. REPORT GIVEN TO TRANSPORT MULTINEEDLE SHIRRER NASH.
== END 2019-03-03 19:00 | DRG 871 ==
LOC: ER 21:15 → TELE 21:16 → WEST WING 02-22 09:30 → TELE-WESTW 02-22 19:59 → TELE-EAST 02-24 23:45 → EAST 02-25 14:15
PROVIDERS: ADMIT Nurse Practitioner Family; ATTEND Internal Medicine
PROC: 30233R1 Transfusion of Nonautologous Platelets into Peripheral Vein, Percutaneous Approach (ICD-10-PCS; 2019-02-22)
PROC: 30233N1 Transfusion of Nonautologous Red Blood Cells into Peripheral Vein, Percutaneous Approach (ICD-10-PCS; 2019-02-22)
PROC: 07DR3ZX Extraction of Iliac Bone Marrow, Percutaneous Approach, Diagnostic (ICD-10-PCS; principal; 2019-03-01)
DX: A41.9 Sepsis, unspecified organism (principal); N17.0 Acute kidney failure with tubular necrosis; J18.9 Pneumonia, unspecified organism; S27.322A Contusion of lung, bilateral, initial encounter; E44.0 Moderate protein-calorie malnutrition; D61.818 Other pancytopenia; D69.3 Immune thrombocytopenic purpura; R65.20 Severe sepsis without septic shock; R29.6 Repeated falls; N18.9 Chronic kidney disease, unspecified; R55 Syncope and collapse; D72.820 Lymphocytosis (symptomatic); W18.39XA Other fall on same level, initial encounter; F17.210 Nicotine dependence, cigarettes, uncomplicated; Z66 Do not resuscitate; F32.9 Major depressive disorder, single episode, unspecified; Z71.6 Tobacco abuse counseling; Z68.28 Body mass index [BMI] 28.0-28.9, adult; Z80.8 Family history of malignant neoplasm of other organs or systems; Y93.89 Activity, other specified; Y92.098 Other place in other non-institutional residence as the place of occurrence of the external cause; Y99.8 Other external cause status
CPT/HCPCS: 36415; 70450; 70486; 71045; 71250; 72125; 74018; 74176; 80048; 80053; 80074; 81001; 82607; 82728; 82746; 83010; 83036; 83540; 83550; 83605; 83615; 83735; 83880; 84436; 84443; 84484; 85007; 85025; 85027; 85045; 85384; 85610; 85730; 86677; 86703; 86706; 86803; 86850; 86880; 86885; 86900; 86901; 86920; 87040; 87340; 87804; 93005; 96361; 96374; 97110; 97116; 97163; 97530; G0378; J1100; J2405; J2543; J3490; J7060

== ENCOUNTER → 2019-06-28 | Outpatient (CLI) | payer MEDICARE ==
[~2019-06-28] MED LIST: AMLO5TAB15 PO; CLON0.1T PO; CYCL1TAB18 PO; FER325T PO; LISI-275 PO; ONDA-155 PO; PANT40T PO; SERT50TA PO
[2019-06-28 11:57] LABS: Urine Bacteria NONE SEEN /hpf (None Seen); Urine Blood 1+ /uL (Negative); Urine Specific Gravity 1.011 (1.001-1.035); Urine Sperm PRESENT /hpf (None Seen); Urine WBC 18 /hpf (0 - 3)
[2019-06-28 12:03] LABS: Albumin 3.4 g/dL (3.4-5.0); Calcium 9.4 mg/dL (8.5-10.1); Potassium 5.1 mmol/L (3.5-5.1)
[2019-06-28 12:10] LABS: BUN/Creatinine Ratio 10.7; Bilirubin, Total 0.6 mg/dL (0.2-1.0); CRP High Sensitivity 1.64 mg/dL (< 0.3); Total Protein 7.3 g/dL (6.4-8.2)
[2019-06-28 12:20] LABS: Hematocrit 39.2 % (41.0-53.0); Hemoglobin 12.9 g/dL (13.5-17.5); Mean Corpuscular Hemoglobin 30.6 pg (28.0-32.0); Mean Corpuscular Hgb Conc. 32.9 g/dL (32.0-36.0); Mean Corpuscular Volume 93.1 fL (80.0-100.0); Platelet Count (auto) 240 10^3/uL (140-450); Red Blood Cells 4.21 10^6/uL (4.5-5.90); Red Cell Distribution Width 15.7 % (11.8-14.3); White Blood Cell 8.8 10^3/uL (4.4-10.8)
[2019-06-28 12:28] LABS: Basophils % (manual) 0 (0.0-2.0); Blast Cells 0; Eosinophils % (manual) 0 (0-7); Myelocytes % 0; Promyelocytes % 0; Reactive Lymphocytes 0
[2019-06-28 13:07] LABS: Band Neutrophils % (manual) 9; Lymphocytes % (manual) 32 (10.0-50.0); Metamyelocytes % 1; Monocytes % (manual) 8 (0-12)
== END | disposition home or self-care (01) ==
LOC: LAB 10:41
PROVIDERS: ATTEND Internal Medicine
DX: Z12.5 Encounter for screening for malignant neoplasm of prostate (principal); M54.2 Cervicalgia; G91.2 (Idiopathic) normal pressure hydrocephalus; R73.03 Prediabetes; K40.20 Bilateral inguinal hernia, without obstruction or gangrene, not specified as recurrent; R06.02 Shortness of breath; E78.49 Other hyperlipidemia
CPT/HCPCS: 36415; 80053; 81001; 82043; 83036; 83880; 84153; 84443; 85007; 85027; 85652; 86141

== ENCOUNTER 2019-08-13 16:39 | Inpatient (IN) | payer MEDICARE, MEDICAID ==
[~2019-08-13] VITALS: Ht 182.9 cm; Wt 108.9 kg
[~2019-08-13 16:39] MED LIST changes: -AMLO5TAB15 PO; -CLON0.1T PO; -CYCL1TAB18 PO; -LISI-275 PO; -ONDA-155 PO
[2019-08-13] MEDS ORDERED: SODIUM CHLORIDE 0.9% 1,000 ML IVB ONE ×2 (17:05→18:03)
[2019-08-13 17:36] LABS: Hematocrit 30.1 % (41.0-53.0); Hemoglobin 9.9 g/dL (13.5-17.5)
[2019-08-13 17:39] LABS: Mean Corpuscular Hgb Conc. 32.9 g/dL (32.0-36.0); Mean Corpuscular Volume 91.2 fL (80.0-100.0); Platelet Count (auto) 84 10^3/uL (140-450)
[2019-08-13 17:51] LABS: INR 1.01 (0.9-1.15); Magnesium 1.9 mg/dL (1.6-2.6); Partial Thromboplastin Time 27.9 sec (23.64-32.05)
[2019-08-13 17:52] LABS: Albumin 3.3 g/dL (3.4-5.0); BUN/Creatinine Ratio 11.1; Calcium 8.9 mg/dL (8.5-10.1); Potassium 3.9 mmol/L (3.5-5.1)
[2019-08-13 17:55] LABS: Bilirubin, Total 0.4 mg/dL (0.2-1.0); Total Protein 6.9 g/dL (6.4-8.2)
[2019-08-13 17:56] LABS: White Blood Cell 111.4 10^3/uL (4.4-10.8)
[2019-08-13 17:57] LABS: Basophils % (manual) 0 (0.0-2.0); Eosinophils % (manual) 0 (0-7); Promyelocytes % 0; Reactive Lymphocytes 0
[2019-08-13] MEDS ORDERED: cefTRIAXone 1GM/50ML D5W 50 ML IV ONE (18:15)
[2019-08-13 18:49] LABS: Urine WBC None Seen /hpf (0 - 3)
[2019-08-13] MEDS ORDERED: ONDANSETRON HCL 4 MG/2 ML VIAL IV ONE (19:00)
[2019-08-13] MEDS ORDERED: MORPHINE SULF INJ 2 MG/ML SYRINGE 1ML IV ONE (19:00)
[2019-08-13 19:01] LABS: Urine Bacteria NONE SEEN /hpf (None Seen); Urine Blood 1+ /uL (Negative); Urine Specific Gravity 1.019 (1.001-1.035)
[2019-08-13] MEDS ORDERED: ACETAMINOPHEN 325 MG TAB PO PRN (21:00)
[2019-08-13] MEDS ORDERED: DOCUSATE SOD 100 MG CAP PO PRN (21:00)
[2019-08-13] MEDS ORDERED: DEXTROSE (50%) 50ML SYRG IV PRN (21:00)
[2019-08-13 21:07] LABS: Band Neutrophils % (manual) 2
[2019-08-13] MEDS: MORPHINE SULFATE 4 MG/ML SYR/VIAL IV PRN (22:50)
[2019-08-13 23:00] VITALS: BP 114/55
--- NOTE | 2019-08-13 23:10 | NUR ---
Telemetry admit from ER CARLINESAMANTHA admitted to Telemetry unit after SBAR received. Patient oriented to CATERINA MICHAEL, primary RN, unit, room, bed, and unit policies regarding patient care and visiting hours. Patient now on continuous telemetry monitoring, tele box #53 and telemetry reading on arrival to unit is SR. Patient placed on bedside oxygen, weighed by bedscale and encouraged to call if they need something. Call light explained and placed within reach. All questions and concerns addressed, patient verbalized understanding.
[2019-08-13] MEDS: InsuLIN REG 1unit/0.01ml Soln (100units/ml) SC SCH (23:58)
[2019-08-13] MEDS: ACCU-CHEK COMFORT CURVE STRIP VI SCH (23:59)
[2019-08-14] VITALS (7 sets, daily range): BP systolic 101–144; BP diastolic 57–74
[2019-08-14] MEDS ORDERED: CLON0.1T PO (00:51)
[2019-08-14] MEDS ORDERED: AMLO5TAB15 PO (00:51)
[2019-08-14] MEDS ORDERED: LISI-275 PO (00:51)
[2019-08-14] MEDS: MORPHINE SULFATE 4 MG/ML SYR/VIAL IV PRN ×4 (03:14→19:54)
[2019-08-14] MEDS: InsuLIN REG 1unit/0.01ml Soln (100units/ml) SC SCH ×5 (04:00→19:53)
[2019-08-14] MEDS: ACCU-CHEK COMFORT CURVE STRIP VI SCH ×5 (05:15→19:53)
[2019-08-14 05:27] LABS: Hematocrit 25.5 % (41.0-53.0); Hemoglobin 8.5 g/dL (13.5-17.5); Mean Corpuscular Hemoglobin 30.1 pg (28.0-32.0); Mean Corpuscular Hgb Conc. 33.2 g/dL (32.0-36.0); Mean Corpuscular Volume 90.7 fL (80.0-100.0); Platelet Count (auto) 70 10^3/uL (140-450); Red Blood Cells 2.81 10^6/uL (4.5-5.90); Red Cell Distribution Width 17.1 % (11.8-14.3)
[2019-08-14 05:29] LABS: White Blood Cell 88.5 10^3/uL (4.4-10.8)
[2019-08-14 06:12] LABS: Potassium 3.8 mmol/L (3.5-5.1)
[2019-08-14 06:35] LABS: BUN/Creatinine Ratio 12.2; Calcium 8.5 mg/dL (8.5-10.1)
--- NOTE | 2019-08-14 07:40 | NUR ---
Opening Shift Note Assumed care of patient. Patient is awake, alert, and oriented x 4. No S/S of respiratory distress/SOB. Respirations are regular and non-labored. Patient denies nausea or vomiting, reports pain in the left side of the midle torso. Pt is on 2 lpm nasal canula. Urinal at bed side. Bed is set in lowest locked position with side rails up x 2 for safety. Call light is within reach. POC discussed with the patient. Pt instructed to call for assistance as needed. Will continue to monitor for changes Q1hr and PRN.
--- NOTE | 2019-08-14 07:55 | NUR ---
Pain assessment. Patient reports pain 9 out of 10 in left side of the midle-lower part of torso. Pain will be addressed per Dr's order.
--- NOTE | 2019-08-14 09:05 | NUR ---
Pain reassessment Patient states decrease in pain level to 5 out of 10. Will continue to monitor.
[2019-08-14] MEDS: PANTOPRAZOLE 40 MG TAB PO SCH (09:30)
[2019-08-14] MEDS: FERROUS SULFATE 325 MG TAB PO SCH (09:30)
[2019-08-14] MEDS: LOSARTAN POTASSIUM 50 MG TAB PO SCH (09:31)
[2019-08-14] MEDS: SERTRALINE HCL 50 MG TAB PO SCH (09:31)
--- NOTE | 2019-08-14 12:20 | NUR ---
Dr. Montano / oncology at bed side to talk to pt, doctor discussed the plan of care with pt.
--- NOTE | 2019-08-14 12:35 | NUR ---
Dr. Tirado at bed side to see pt, doctor discussed the plan of care with pt.
--- NOTE | 2019-08-14 13:12 | NUR ---
PT REPORTS PAIN ON LT UPPER ABDOMINAL AREA 12/17, PT REQUESTED MORPHINE, WILL MEDICATE PT ORDER.
[2019-08-14 13:27] LABS: Band Neutrophils % (manual) 3; Basophils % (manual) 0 (0.0-2.0); Blast Cells 73; Eosinophils % (manual) 0 (0-7); Lymphocytes % (manual) 16 (10.0-50.0); Metamyelocytes % 0; Monocytes % (manual) 7 (0-12); Myelocytes % 0; Promyelocytes % 0; Reactive Lymphocytes 0
--- NOTE | 2019-08-14 14:17 | NUR ---
Received call from Dr. Kumar / surgeon and received orders for npo after midnight tonight, ekg, pt/ptt, inr, obtain consent for excisional biopsy of right groin lymphadenopathy, and to call OR to add the procedure. Orders placed.
[2019-08-14 15:02] LABS: INR 1.05 (0.9-1.15); Partial Thromboplastin Time 40.7 sec (23.64-32.05)
[2019-08-14] MEDS: cefTRIAXone 1GM/50ML D5W 50 ML IV SCH (17:20)
[2019-08-14] MEDS ORDERED: ONDA-155 PO (17:37)
[2019-08-14] MEDS ORDERED: CYCL1TAB18 PO (17:37)
[2019-08-14] MEDS: ALBUTEROL SULF 2.5 MG/0.5ML(0.5%) NEB SOLN NEB PRN (18:59)
[2019-08-15] MEDS: ACCU-CHEK COMFORT CURVE STRIP VI SCH ×6 (00:03→22:13)
[2019-08-15] MEDS: MORPHINE SULFATE 4 MG/ML SYR/VIAL IV PRN ×3 (00:13→11:05)
[2019-08-15] MEDS: InsuLIN REG 1unit/0.01ml Soln (100units/ml) SC SCH ×6 (04:00→22:00)
[2019-08-15 05:06] VITALS: BP 125/70
--- NOTE | 2019-08-15 07:50 | NUR ---
OPENING SHIFT NOTE: PATIENT RESTING IN BED, A/OX4. NO SIGNS OF DISTRESS. UPDATED ON PLAN OF CARE, PATIENT VERBALIZED UNDERSTANDING. NO C/O PAIN AT THIS TIME. SAHU HUNG BELOW BLADDER FREE OF KINKS, PATIENT RESPIRATIONS EVEN NOTED CRACKLES THROUGHOUT BILATERAL POSTERIOR BASES, 10L OXYMIZER IN PLACE. CALL LIGHT WITHIN REACH, FALL PRECAUTIONS IN PLACE. WILL CONTINUE TO MONITOR. Addendum: 08/15/19 at 0839 by MANUEL MATTHEW RN RN MISTAKEN ENTRY-DIFFERENT PATIENT.
--- NOTE | 2019-08-15 07:50 | NUR ---
OPENING SHIFT NOTE: PATIENT RESTING IN BED A/O X4. PATIENT UPDATED ON PLAN OF CARE AND NPO STATUS FOR PLANS OF BIOPSY TODAY. PATIENT VERBALIZED UNDERSTANDING. CALL LIGHT WITHIN REACH, WILL CONTINUE TO MONITOR.
[2019-08-15 09:00] VITALS: BP 125/60
[2019-08-15] MEDS: LOSARTAN POTASSIUM 50 MG TAB PO SCH (10:00)
[2019-08-15] MEDS: PANTOPRAZOLE 40 MG TAB PO SCH (10:00)
[2019-08-15] MEDS: FERROUS SULFATE 325 MG TAB PO SCH (10:00)
[2019-08-15] MEDS: SERTRALINE HCL 50 MG TAB PO SCH (10:00)
[2019-08-15] MEDS: ALBUTEROL SULF 2.5 MG/0.5ML(0.5%) NEB SOLN NEB PRN (10:38)
--- NOTE | 2019-08-15 10:38 | NUR ---
Respiratory note: ASSESSED PT FOR PRN BREATHING TX. PT WAS AWAKE AND ALERT. PT STATED HE WAS FEELING SHORT OF BREATH. PT RECEIVED BREATHING TX W/O ANY ADVERSE REACTIONS. RN AT BEDSIDE. PT IS AWARE TO HAVE RT PAGED IF BREATHING TX IS NEEDED. WILL CONTINUE TO MONITOR PT.
--- NOTE | 2019-08-15 11:05 | NUR ---
MED PASS: PATIENT INSTRUCTED ON MEDICATIONS AND WAS READY TO TAKE MORNING MEDS, THEN REFUSED AND STATED, "I HAVEN'T EATEN ANYTHING AND IT IS GOING TO LEAVE A BITTER TASTE IN MY MOUTH AND I AM IN PAIN."
--- NOTE | 2019-08-15 11:38 | NUR ---
PATIENT TAKEN DOWN TO OR.
[2019-08-15] MEDS ORDERED: ceFAZolin 1GM/50ML 50 ML IV ONE (11:40)
[2019-08-15] MEDS ORDERED: BUPIVACAINE 0.25% INJ 50ML VIAL ONE ×2 (11:57→14:33)
[2019-08-15] MEDS ORDERED: LIDOCAINE 1% HCL (LOCAL ANESTH.) INJ 20ML MDV ONE (11:57)
[2019-08-15] MEDS ORDERED: MIDAZOLAM HCL 1MG/1ML-2 ML VIAL ONE (12:20)
[2019-08-15] MEDS ORDERED: PROPOFOL 10 MG/ML 20 ML IV ONE (12:20)
[2019-08-15] MEDS ORDERED: fentaNYL CITRATE 100 MCG/2 ML VL ONE ×2 (12:20→12:21)
[2019-08-15 13:00] VITALS: BP 126/64
[2019-08-15] MEDS ORDERED: ONDANSETRON HCL 4 MG/2 ML VIAL IV PRN (13:00)
[2019-08-15] MEDS ORDERED: fentaNYL CITRATE 100 MCG/2 ML VL IV PRN (13:00)
[2019-08-15] MEDS ORDERED: hydrALAZINE HCL 20 MG/ML VL IV PRN (13:00)
[2019-08-15] MEDS ORDERED: ePHEDrine SULFATE 50 MG/ML AMP IV PRN (13:00)
--- NOTE | 2019-08-15 13:45 | NUR ---
PATIENT BACK FROM OR. VS OBTAINED, ICE PACK IN PLACE, SUTURE SITE CDI. NO SIGNS OF DISTRESS AT THIS TIME.
--- NOTE | 2019-08-15 13:48 | NUR ---
MD RAI ARANA.
[2019-08-15 13:51] LABS: Hemoglobin 8.4 g/dL (13.5-17.5); Platelet Count (auto) 65 10^3/uL (140-450)
[2019-08-15 13:54] LABS: Hematocrit 25.1 % (41.0-53.0); Mean Corpuscular Hemoglobin 30.6 pg (28.0-32.0); Mean Corpuscular Hgb Conc. 33.5 g/dL (32.0-36.0); Mean Corpuscular Volume 91.2 fL (80.0-100.0); Red Blood Cells 2.75 10^6/uL (4.5-5.90)
[2019-08-15 14:06] LABS: White Blood Cell 78.1 10^3/uL (4.4-10.8)
[2019-08-15 14:08] LABS: Basophils % (manual) 0 (0.0-2.0); Eosinophils % (manual) 0 (0-7); Metamyelocytes % 0; Myelocytes % 0; Promyelocytes % 0; Reactive Lymphocytes 0
[2019-08-15 14:10] LABS: Albumin 2.9 g/dL (3.4-5.0); Calcium 8.7 mg/dL (8.5-10.1); Potassium 4.4 mmol/L (3.5-5.1)
[2019-08-15 14:13] LABS: BUN/Creatinine Ratio 10.4; Bilirubin, Total 0.3 mg/dL (0.2-1.0); Total Protein 6.1 g/dL (6.4-8.2)
[2019-08-15 14:37] LABS: Band Neutrophils % (manual) 7; Blast Cells 73; Lymphocytes % (manual) 8 (10.0-50.0); Monocytes % (manual) 4 (0-12)
[2019-08-15] MEDS: MORPHINE SULF INJ 2 MG/ML SYRINGE 1ML IV PRN ×2 (15:13→22:14)
--- NOTE | 2019-08-15 15:34 | NUR ---
IV: IV IN THE LEFT AC LEAKING, IV REMOVED GAUZE APPLIED. NEW IV PLACED IN THE RIGHT HAND 22G. PATIENT TOLERATED WELL. 1 ATTEMPT MADE.
[2019-08-15 16:41] VITALS: BP 126/64
[2019-08-15] MEDS: TAMSULOSIN HYDROCHLORIDE 0.4 MG CAP PO SCH (17:40)
[2019-08-15] MEDS: cefTRIAXone 1GM/50ML D5W 50 ML IV SCH (17:41)
[2019-08-15] MEDS: HYDROcodone-ACET 5/325MG TAB PO PRN (17:41)
--- NOTE | 2019-08-15 18:40 | NUR ---
RT NOTE: PT RESTING WITH NO DISTRESS. PT ON 2LPM NC SPO2 96% HR 84, RR 18. PT DENIES SOB. PT NOTIFIED OF PRN MED NEB TX AND TO HAVE RT PAGED IF NEEDED. BS CLEAR AND DECREASED.
--- NOTE | 2019-08-15 19:10 | NUR ---
Opening Shift Note Received report from marianela Rios RN. Assumed care of patient, awake and alert. No S/S of distress/SOB but c/o pain to right groin. Instructed on POC and to call for assist PRN, will continue to monitor for changes Q1hr and PRN. Bed placed in lowest position, bed alarm turned on and call light within reach.
--- NOTE | 2019-08-15 19:22 | NUR ---
CARE ENDORSED TO JOSE MIGUEL GONZALEZ
[2019-08-15 20:00] VITALS: BP 120/53
[2019-08-15 22:00] VITALS: BP 120/53
[2019-08-16] MEDS: HYDROcodone-ACET 5/325MG TAB PO PRN ×3 (01:18→14:34)
--- NOTE | 2019-08-16 01:18 | NUR ---
PATIENT IS REQUESTING PAIN MEDICATION FOR PAIN TO RIGHT GROIN(BIOPSY INCISION SITE) 12/17. PATIENT STATES THAT PAIN AGGRAVATES AFTER HE CHANGED POSITION FROM RIGHT SIDE TO SUPINE. NORCO WAS GIVEN. WILL MONITOR
[2019-08-16] MEDS: MORPHINE SULF INJ 2 MG/ML SYRINGE 1ML IV PRN ×2 (03:54→08:13)
[2019-08-16 05:00] VITALS: BP 121/58
[2019-08-16] MEDS: InsuLIN REG 1unit/0.01ml Soln (100units/ml) SC SCH ×4 (06:48→21:35)
[2019-08-16] MEDS: ACCU-CHEK COMFORT CURVE STRIP VI SCH ×4 (06:49→21:35)
--- NOTE | 2019-08-16 06:49 | NUR ---
Patient is resting in bed alert and awake. Patient states his pain level is at 5/10 which is comfortable level for him.
[2019-08-16 08:00] VITALS: BP_SYST 142; BP_SYST 147; BP_DIAS 69
--- NOTE | 2019-08-16 08:00 | NUR ---
Opening Shift Note Assumed care of patient, awake, alert and oriented. No S/S of distress or shortness of breathe. Patient complaining of pain of 8/10 at right groin insision site. Will administer pain medication according to pain scale. Patient receiving oxygen via nasal cannula at 2 L/ min. Bed locked, in lowest position, call light within reach. Instructed on POC and to call for assist PRN. Will continue to monitor for changes Q1hr and PRN.
--- NOTE | 2019-08-16 08:52 | NUR ---
PT ASSESSED FOR PRN HHN TX. PT IS ON 3LNC, SPO2 96%, HR 74, RR 20. NO S/S OF RESPIRATORY DISTRESS. HHN TX NOT INDICATED AT THIS TIME. WILL CONTINUE TO MONITOR.
[2019-08-16] MEDS: FERROUS SULFATE 325 MG TAB PO SCH ×2 (10:10→17:58)
[2019-08-16] MEDS: SERTRALINE HCL 50 MG TAB PO SCH (10:11)
[2019-08-16] MEDS: PANTOPRAZOLE 40 MG TAB PO SCH (10:11)
[2019-08-16] MEDS: LOSARTAN POTASSIUM 50 MG TAB PO SCH (10:11)
[2019-08-16 12:00] VITALS: BP 136/77
--- NOTE | 2019-08-16 14:28 | NUR ---
assessment Patient is a 73 year old male. Per patients sister Pinky prior to admission patient lived home with family and functioned with assistance. Per [place] patient has a cane and fww for home use. Patient is on service with [facility]. Patient will need a resumption order on discharge. Patient may also need home IV ABX for Sepsis. Pinky verbalized understanding and agreed to discharge plan home. Addendum: 08/16/19 at 1431 by Sherie KWAN Amended: Links added.
[2019-08-16 16:57] VITALS: BP 124/73
[2019-08-16] MEDS: cefTRIAXone 1GM/50ML D5W 50 ML IV SCH (17:58)
[2019-08-16] MEDS: TAMSULOSIN HYDROCHLORIDE 0.4 MG CAP PO SCH (17:58)
--- NOTE | 2019-08-16 18:12 | NUR ---
LACK OF APPETITE: PATIENT REPORTS, "JUST NOT FEELING HUNGRY." PATIENT DRINKING WATER, BUT REFUSED DINNER TRAY AT THIS TIME. INQUIRED ABOUT PATIENT PREFERENCES OF FOOD, AND PATIENT DENIED NEEDING CHANGE IN MEAL, AND DID NOT GIVE MUCH RESPONSE TO NURSES QUESTIONS ON LACK OF APPETITE. WILL CONTINUE TO MONITOR.
--- NOTE | 2019-08-16 19:10 | NUR ---
Respiratory note: PT RECIEVED ON NC3L. PT IS AWAKE AND ALERT AT THIS TIME. NO RESP DISTRESS NOTED. SPO2 93%, HR 75, RR 18. BS DIM T/O. NO INDICATION FOR PRN TX AT THIS TIME. PT AWARE TO CALL FOR TX IF SOB/WHEEZING.
--- NOTE | 2019-08-16 19:11 | NUR ---
CARE ENDORSED TO HUEY GONZALEZ.
--- NOTE | 2019-08-16 19:30 | NUR ---
Opening Shift Note Assumed care of patient after receiving report from day RN Blanca. Patient awake and alert, resting in bed comfortably with HOB raised. No S/S of distress/SOB or pain. Instructed on POC and to call for assist PRN, will continue to monitor for changes Q1hr and PRN.
[2019-08-16 22:00] VITALS: BP 131/59
[2019-08-17] VITALS (7 sets, daily range): BP systolic 116–145; BP diastolic 62–69
[2019-08-17 05:37] LABS: Hemoglobin 8.3 g/dL (13.5-17.5); Red Cell Distribution Width 16.9 % (11.8-14.3)
[2019-08-17 05:42] LABS: Hematocrit 24.5 % (41.0-53.0); Mean Corpuscular Hemoglobin 30.3 pg (28.0-32.0); Mean Corpuscular Hgb Conc. 33.7 g/dL (32.0-36.0); Mean Corpuscular Volume 89.9 fL (80.0-100.0); Platelet Count (auto) 65 10^3/uL (140-450); Red Blood Cells 2.72 10^6/uL (4.5-5.90)
[2019-08-17 05:55] LABS: White Blood Cell 75.6 10^3/uL (4.4-10.8)
[2019-08-17 05:57] LABS: Basophils % (manual) 0 (0.0-2.0); Eosinophils % (manual) 0 (0-7); Metamyelocytes % 0; Myelocytes % 0; Promyelocytes % 0; Reactive Lymphocytes 0
[2019-08-17 05:59] LABS: Calcium 8.9 mg/dL (8.5-10.1); Potassium 4.2 mmol/L (3.5-5.1)
[2019-08-17 06:02] LABS: BUN/Creatinine Ratio 10.3
[2019-08-17] MEDS: ACCU-CHEK COMFORT CURVE STRIP VI SCH ×4 (06:31→21:59)
[2019-08-17] MEDS: InsuLIN REG 1unit/0.01ml Soln (100units/ml) SC SCH ×4 (06:32→21:59)
--- NOTE | 2019-08-17 06:35 | NUR ---
Critical lab received Received critical lab for WBC of 75.6. Hospitalist notified, lab value trending down. No new orders received at this time, will continue to monitor.
[2019-08-17 07:19] LABS: Band Neutrophils % (manual) 1; Blast Cells 90; Lymphocytes % (manual) 6 (10.0-50.0); Monocytes % (manual) 1 (0-12)
--- NOTE | 2019-08-17 07:40 | NUR ---
Opening shift note Assumed care of patient. Patient A&Ox4, respirations even and non-labored. Discussed POC with patient who verbalized understanding. Patient described a painful itching and burning to his scalp. Noted multiple red bumps across forehead, scalp and chest. Dressing to right groin incision clean, dry and intact. Delatorre patent and draining 1 L of clear, light yellow urine. IV flushed, patent andn intact. Patient on 3L NC. Discussed the need for fall safety and advised patient to call for assistance. Bed alarm set, lowered/locked, with 2 side rails up. Call light within reach. Will continue to monitor. Addendum: 08/17/19 at 0928 by DARLENE DENISE RN RN Incorrect patient for Delatorre Catheter. Patient has a bedside urinal.
--- NOTE | 2019-08-17 08:00 | NUR ---
Respiratory note: PT IS AWAKE, AND ALERT. RESPIRATORY DISTRESS NOT NOTED. SPO2 97% ON 3LNC, HR 98, RR 18, BS CLEAR BILATERALLY. PRN MEDNEB TX NOT INDICATED AT THIS TIME. PT INFORMED TO PUSH CALL BUTTON IF INCREASED WOB, SOB, OR WHEEZING OCCURS.
--- NOTE | 2019-08-17 08:30 | NUR ---
Pain Patient having 8/10 pain to right groin incision and left, lower, lateral abdominal pain. Administered Morphine 2 mg per EMAR. Will continue to monitor.
[2019-08-17] MEDS: FERROUS SULFATE 325 MG TAB PO SCH ×3 (08:39→17:35)
[2019-08-17] MEDS: MORPHINE SULF INJ 2 MG/ML SYRINGE 1ML IV PRN ×3 (08:40→21:37)
--- NOTE | 2019-08-17 09:15 | NUR ---
Pain reassessed Patient resting with eyes closed, respirations even and non-labored with no s/s of distress. Patient woke up and stated that his pain was a 4/10 but movement caused a 5/10, which he stated was a tolerable level. Will continue to monitor.
--- NOTE | 2019-08-17 09:30 | NUR ---
Contacted pharmacy Patient Hydrea not supplied in medication room. Pharmacy contacted and was told that they would be up to re-supply the medication.
[2019-08-17] MEDS: PANTOPRAZOLE 40 MG TAB PO SCH (09:44)
[2019-08-17] MEDS: SERTRALINE HCL 50 MG TAB PO SCH (09:44)
[2019-08-17] MEDS: LOSARTAN POTASSIUM 50 MG TAB PO SCH (09:45)
[2019-08-17] MEDS: hydroxyUREA 500 MG CAP PO SCH (10:25)
[2019-08-17] MEDS ORDERED: ALLOPURINOL 100 MG TAB PO ONE (11:00)
--- NOTE | 2019-08-17 12:00 | NUR ---
Dr. Tirado Bedside Patient prescribed benadryl 25 mg for rash/itching.
[2019-08-17] MEDS ORDERED: diphenhdrAMINE HCL 50 MG/1 ML VL IV ONE (12:15)
[2019-08-17 14:11] LABS: Lymphocytes % (manual) 4 (10.0-50.0); Monocytes % (manual) 4 (0-12)
[2019-08-17 14:12] LABS: Blast Cells 82
--- NOTE | 2019-08-17 14:34 | NUR ---
Pain Patient describing right groin incision, left lower side pain 11/16. Administered 2 mg Morphine per EMAR. Will continue to monitor.
--- NOTE | 2019-08-17 16:10 | NUR ---
Call to Dr. Montano Left a message for Dr. Montano regarding medication clarification. Awaiting callback.
--- NOTE | 2019-08-17 16:44 | NUR ---
I faxed higher level of care transfer request to [facility], [facility] and [facility].
--- NOTE | 2019-08-17 17:17 | NUR ---
Call from Dr. Montano Patient is to stay on hydroxyurea once transferred.
[2019-08-17] MEDS: cefTRIAXone 1GM/50ML D5W 50 ML IV SCH (17:35)
[2019-08-17] MEDS: TAMSULOSIN HYDROCHLORIDE 0.4 MG CAP PO SCH (17:35)
--- NOTE | 2019-08-17 19:27 | NUR ---
Closing Shift Note Patient is resting in bed. No distress noted. Report given. Will endorse care to the shift superintendent caustic cresylate RN.
--- NOTE | 2019-08-17 19:55 | NUR ---
Respiratory note: PT ASSESSED FOR PRN MED NEB TX, NO TX DESIRED NOR INDICATED AT THIS TIME. PT SLEEPING, EASILY AWAKES WITH NO DISTRESS. HR 62 RR 18 SPO2 96% ON 3L N/C BREATH SOUNDS ARE CLEAR/DIMINISHED T/O.
--- NOTE | 2019-08-17 20:10 | NUR ---
Opening Shift Note Assumed care of patient, awake and alert. No S/S of distress/SOB. Patient is on 3 liters of oxygen via nasal cannula. Respirations even and unlabored. SCDs are on both legs. Instructed on POC and to call for assist PRN, will continue to monitor for changes Q1hr and PRN.
[2019-08-18] MEDS: MORPHINE SULF INJ 2 MG/ML SYRINGE 1ML IV PRN ×3 (04:39→12:30)
[2019-08-18 05:00] VITALS: BP 124/75
[2019-08-18] MEDS: ACCU-CHEK COMFORT CURVE STRIP VI SCH ×3 (06:50→17:00)
[2019-08-18] MEDS: InsuLIN REG 1unit/0.01ml Soln (100units/ml) SC SCH ×3 (06:50→17:00)
--- NOTE | 2019-08-18 07:13 | NUR ---
CLOSING NOTE No S/S of distress/SOB. Patient is on 3 liters of oxygen via nasal cannula. Respirations even and unlabored. SCDs are on both legs.
--- NOTE | 2019-08-18 07:25 | NUR ---
Opening shift note Assumed care of patient. Patient A&Ox4, respirations even and non-labored with no s/s of distress. Discussed POC with patient who verbalized understanding. NC on 3L, IV flushed, patent, and intact. Urinal bedside, SCDs on. Bed locked/lowered with 2 side rails up. Call light within reach. Will continue to monitor.
[2019-08-18 08:00] VITALS: BP 120/57
--- NOTE | 2019-08-18 08:30 | NUR ---
Pain Patient described 8/10 generalized body pain. Administered 2 mg morphine per EMAR. Will continue to monitor.
--- NOTE | 2019-08-18 08:40 | NUR ---
I received a message from [facility] letting me know that they can not accept patient at this time-they are only accepting STEMI, stroke and trauma transfers.
[2019-08-18 09:00] VITALS: BP 120/57
[2019-08-18] MEDS: FERROUS SULFATE 325 MG TAB PO SCH ×2 (09:03→10:27)
--- NOTE | 2019-08-18 09:09 | NUR ---
I received a call from Dave at the [facility] letting me know that they would need a negative COVID-19 result on this patient before they could accept for transfer. He is also asking for the flow cytometry report-I called Pathology-they will fax it to me. I spoke with patient's nurse Meghana regarding their request for a COVID-19 test to be done.
--- NOTE | 2019-08-18 09:22 | NUR ---
I faxed flow cytometry report to [facility].
--- NOTE | 2019-08-18 09:30 | NUR ---
Pain reassessed Patient resting with eyes closed, respirations even and non-labored with no s/s of distress. Patient awoke to state that his pain was a tolerable 6/10 now.
[2019-08-18] MEDS ORDERED: ALLOPURINOL 100 MG TAB PO SCH (10:00)
[2019-08-18] MEDS: PANTOPRAZOLE 40 MG TAB PO SCH (10:26)
[2019-08-18] MEDS: hydroxyUREA 500 MG CAP PO SCH (10:27)
[2019-08-18] MEDS: SERTRALINE HCL 50 MG TAB PO SCH (10:28)
[2019-08-18] MEDS: LOSARTAN POTASSIUM 50 MG TAB PO SCH (10:28)
--- NOTE | 2019-08-18 10:35 | NUR ---
Spoke with Dr. Tirado Spoke with Dr. Tirado regarding patient's need for a negative covid-19 test before acceptance to [facility]. Dr. Tirado verbalizes understanding. Covid-19 test to be ordered. Will notify Lily.
--- NOTE | 2019-08-18 10:40 | NUR ---
Call to [facility] Call to [facility], infectious specialist. [facility] aware of patient needing to be tested in order to transfer facilities. Will order test at this time.
--- NOTE | 2019-08-18 11:25 | NUR ---
Covid-19 Test Covid-19 specimen collected at this time. Patient tolerated well. Specimen walked over to lab by CARLOS Apodaca.
--- NOTE | 2019-08-18 12:17 | NUR ---
I spoke with Dr. Tirado regarding the plan of care for this patient. I let her know that outside facilities are only accepting emergent transfers at this time. 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
--- NOTE | 2019-08-18 12:30 | NUR ---
Dr. Montano bedside. Patient to go home to hospice.
[2019-08-18 13:00] VITALS: BP 123/63
--- NOTE | 2019-08-18 13:00 | NUR ---
Masked placed on patient, patient tolerating well.
--- NOTE | 2019-08-18 13:45 | NUR ---
Cancelled Covid-19 Patient is no longer being transferred to acute care facility. Patient has chosen to go on hospice. Dr. Tirado has ordered to have Covid-19 cancelled at this time, if possible. Spoke with lab and sample has not been sent. Will cancel order. Radha, MS director, aware.
--- NOTE | 2019-08-18 14:12 | NUR ---
Nutrition Assessment Notes Please refer to link for full assessment notes. Est energy needs: 1908-7365 kcals (17-20 kcal/kgBW) Est protein needs: 88-97 gms/day (0.8-1.0 gm/kgAdjBW) Will continue to monitor and reassess prn. Addendum: 08/18/19 at [address] Amended: Links added.
--- NOTE | 2019-08-18 14:24 | NUR ---
Received hospice evaluation order by physician. Waiting for physician to speak with family.
--- NOTE | 2019-08-18 14:45 | NUR ---
Pt signed choice of vendor. ([facility]) Copy made and put in chart. 0000
--- NOTE | 2019-08-18 14:48 | NUR ---
PT IS GOING HOME ON HOSPICE. D/C P.T. ORDER.
--- NOTE | 2019-08-18 15:29 | NUR ---
Pt will be going home between 5:30 and 6:00 by [facility]. Heat Treat Worker consult regarding Hospice. Pt was provided a list of agencies andchoice letter. Per request contacted [facility] and clinical information faxed to Norma. Information received and services to start upon discharge. Will notify covering nurse and GERMANIA II of the above.
[2019-08-18 16:21] VITALS: BP 120/57
[2019-08-18] MEDS: HYDROcodone-ACET 5/325MG TAB PO PRN (17:08)
--- NOTE | 2019-08-18 17:15 | NUR ---
Home Medications Home Medications were picked up at the pharmacy by this RN and given to patient. Patient has signed form acknowledging he has received medication.
--- NOTE | 2019-08-18 17:25 | NUR ---
IV removal Patient has removed IV at this time. Upon entering room, tele box and IV catheter are sitting on the bedside table. When asked if patient removed IV, patient states, "Yes." Catheter is intact. No trauma to site.
--- NOTE | 2019-08-18 17:41 | NUR ---
Discharge Discharge instructions given as ordered. Encourage to follow up with hospice MD as instructed. All questions and concerns addressed. Patient verbalized understanding. Medication reconciliation form completed and copy given to patient. Home medications held in Pharmacy returned to patient. IV removed with catheter intact. Telemetry unit returned to ICU. Patient taken home on hospice with arranged transportation with all personal belongings, accompanied by transport staff. No distress noted at time of departure.
[2019-08-18] MEDS ORDERED: MORPHINE SULF 30 mg ER tab PO SCH (22:00)
== END 2019-08-18 17:45 | disposition hospice, home (50) | DRG 823 ==
LOC: EDBD 16:39 → ER 16:39 → TELE 16:40 → TELE-WESTW 23:10
PROVIDERS: ADMIT Hospitalist; ATTEND Internal Medicine Nephrology
PROC: 07BH0ZX Excision of Right Inguinal Lymphatic, Open Approach, Diagnostic (ICD-10-PCS; principal; 2019-08-15 12:08)
DX: C86.4 Blastic NK-cell lymphoma (principal); J18.9 Pneumonia, unspecified organism; C79.9 Secondary malignant neoplasm of unspecified site; C95.00 Acute leukemia of unspecified cell type not having achieved remission; J43.9 Emphysema, unspecified; D69.6 Thrombocytopenia, unspecified; I12.9 Hypertensive chronic kidney disease with stage 1 through stage 4 chronic kidney disease, or unspecified chronic kidney disease; E11.22 Type 2 diabetes mellitus with diabetic chronic kidney disease; N18.3 Chronic kidney disease, stage 3 (moderate); Z82.49 Family history of ischemic heart disease and other diseases of the circulatory system; Z83.3 Family history of diabetes mellitus; Z80.9 Family history of malignant neoplasm, unspecified; Z80.8 Family history of malignant neoplasm of other organs or systems; Z87.891 Personal history of nicotine dependence
CPT/HCPCS: 36415; 71045; 71250; 74176; 80048; 80053; 81001; 82962; 83036; 83605; 83615; 83690; 83735; 84154; 85007; 85025; 85027; 85060; 85610; 85730; 86850; 86900; 86901; 87040; 93005; 94640; 96365; 96367; 96375; G0378; J0690; J0696; J2001; J2250; J2405; J2704; J3490